=== PATIENT | male | born 1975 | race Caucasian/White ===

== ENCOUNTER 2016-12-19 08:48 | Emergency (ER) | payer MEDICAID ==
[~2016-12-19] VITALS: Ht 182.9 cm; Wt 89.0 kg
[2016-12-19 08:56] VITALS: BP 136/76
== END 2016-12-19 09:39 | disposition home or self-care (01) ==
LOC: ED 09:25
DX: K08.89 Other specified disorders of teeth and supporting structures (principal)
CPT/HCPCS: 99283

== ENCOUNTER 2017-01-25 12:14 | Emergency (ER) | payer MEDICAID ==
[~2017-01-25] VITALS: Ht 182.9 cm; Wt 88.7 kg
[2017-01-25] MEDS ORDERED: KETOROLAC 30 MG/1 ML IM ONE (13:00)
[2017-01-25] MEDS ORDERED: DIAZEPAM 5 MG TABLET PO ONE (13:00)
[2017-01-25] MEDS ORDERED: OXYcodone/APAP 5/325MG TABLET PO ONE (13:00)
[2017-01-25] MEDS ORDERED: KETOROLAC 30 MG/1 ML ONE (13:04)
[2017-01-25] MEDS ORDERED: DIAZEPAM 5 MG TABLET ONE (13:04)
[2017-01-25] MEDS ORDERED: OXYcodone/APAP 5/325MG TABLET ONE (13:04)
== END 2017-01-25 13:13 | disposition home or self-care (01) ==
LOC: ED 12:56
DX: M46.1 Sacroiliitis, not elsewhere classified (principal); F12.10 Cannabis abuse, uncomplicated
CPT/HCPCS: 96372; 99283; J1885

== ENCOUNTER 2018-03-15 09:57 | Emergency (ER) | payer SELFPAY ==
[~2018-03-15] VITALS: Ht 182.9 cm; Wt 89.0 kg
[2018-03-15 09:58] VITALS: BP 114/71
[2018-03-15] MEDS ORDERED: ACETAMINOPHEN 500 MG TABLET ONE (10:24)
[2018-03-15] MEDS ORDERED: KETOROLAC 30 MG/1 ML ONE (10:24)
[2018-03-15] MEDS ORDERED: ACETAMINOPHEN 500 MG TABLET PO ONE (10:30)
[2018-03-15] MEDS ORDERED: KETOROLAC 30 MG/1 ML IM ONE (10:30)
== END 2018-03-15 10:38 | disposition home or self-care (01) ==
LOC: ED 10:26
DX: M54.5 Low back pain (principal)
CPT/HCPCS: 96372; 99283; J1885